=== PATIENT | female | born 1975 | race Two or more races ===

== ENCOUNTER 2020-12-02 13:34 | Emergency (ER) | payer OTHER ==
[~2020-12-02] VITALS: Ht 160 cm; Wt 67.1 kg
[2020-12-02] MEDS ORDERED: ZOLOFT100 MG PO (13:53)
== END 2020-12-02 21:28 | disposition home or self-care (01) ==
LOC: ER 13:34
DX: N39.0 Urinary tract infection, site not specified (principal); A90 Dengue fever [classical dengue]; Z11.52 Encounter for screening for COVID-19